=== PATIENT | male | born 1970 | race Caucasian/White ===

== ENCOUNTER 2016-10-23 14:18 | Emergency (ER) | payer SELFPAY ==
[~2016-10-23] VITALS: Ht 180.3 cm; Wt 105.3 kg
[2016-10-23 16:12] VITALS: BP 140/85
== END 2016-10-23 16:13 | disposition home or self-care (01) ==
LOC: EME 14:18
DX: S01.01XD Laceration without foreign body of scalp, subsequent encounter (principal); Z48.02 Encounter for removal of sutures
CPT/HCPCS: 99281; 99284

== ENCOUNTER 2017-10-05 10:22 | Emergency (ER) | payer SELFPAY ==
[~2017-10-05] VITALS: Ht 180.3 cm; Wt 111.6 kg
[2017-10-05] MEDS ORDERED: NAPROXEN500 MG PO (13:12)
[2017-10-05] MEDS ORDERED: LIDODERM 5% P1 PATCH TD (13:12)
[2017-10-05] MEDS ORDERED: FLEXERIL10 MG PO (13:12)
[2017-10-05 13:56] VITALS: BP 128/95
== END 2017-10-05 14:00 | disposition home or self-care (01) ==
LOC: EME 10:22 → RME 10:22
DX: M62.838 Other muscle spasm (principal)
CPT/HCPCS: 99281; 99284; J1100; J1885